=== PATIENT | female | born 1960 | race Caucasian/White ===

== ENCOUNTER 2018-01-29 22:49 | Inpatient (IN) | payer BC ==
[~2018-01-29] VITALS: Ht 165.1 cm; Wt 88.0 kg
[~2018-01-29 22:49] MED LIST: ASPI81TA81 PO; CARV12.52 PO; EPIP0.3I IM; FISH1000 PO; GLIP5TAB8 PO; GLUM1000 PO; LISI-515 PO; MULT-120 PO; SIMV20TA PO; [UNRECOGNIZED DRUG - SUPPLY]; glucometer
[2018-01-30] VITALS (7 sets, daily range): BP systolic 133–165; BP diastolic 71–87; PULSE 99–109; RESP 16–20; TEMP 97.4–98.1; O2SAT 95–99
[2018-01-30] MEDS ORDERED: TURM500C7 (00:23)
[2018-01-30] MEDS ORDERED: MULT-65 PO (00:23)
[2018-01-30] MEDS ORDERED: CINN500C14 (00:23)
--- NOTE | 2018-01-30 01:15 | RADRPT ---
EXAM DATE/TIME: 01/30/2018 01:01 [facility] COMPARISON: No previous studies available for comparison. INDICATIONS : Fell down a step this evening and felt pop. MEDICAL HISTORY : None. SURGICAL HISTORY : None. ENCOUNTER: Initial ACUITY: 1 day PAIN SCORE: 7/10 LOCATION: Left Ankle FINDINGS: Three view exam was performed of the left ankle. Bimalleolar fracture dislocation of the ankle with c omplete disruption of the ankle mortise. CONCLUSION: Bimalleolar fracture dislocation of the ankle. Kyle Hernandez MD on January 30, 2018 at 1:12 Board Certified Radiologist. This report was verified electronically.
[2018-01-30] MEDS ORDERED: SODIUM CHLORID 0.9% 500 ML INJ 500 ML IV ONE (01:30)
[2018-01-30] MEDS ORDERED: PROPOFOL 500 MG/50 ML BTL IV ONE (01:30)
[2018-01-30] MEDS ORDERED: SODIUM CHLORIDE 0.9% FLUSH 10 ML FLUSH IVF PRN (01:30)
--- NOTE | 2018-01-30 01:34 | RADRPT ---
EXAM DATE/TIME: 01/30/2018 01:14 [facility] COMPARISON: No previous studies available for comparison. INDICATIONS : Trauma; fall. RADIATION DOSE: 21.24 CTDIvol (mGy) MEDICAL HISTORY : Hypertension. Diabetes mellitus type 2. SURGICAL HISTORY : Hysterectomy. ENCOUNTER: Initial ACUITY: 1 day PAIN SCALE: 6/10 LOCATION: neck TECHNIQUE: Volumetric scanning of the cervical spine was performed. Multiplanar reconstructions in the sagittal, coronal and oblique axial planes were performed. Using automated exposure control and adjustment o f the mA and/or kV according to patient size, radiation dose was kept as low as reasonably achievable to obtain optimal diagnostic quality images. DICOM format image data is available electronically f or review and comparison. FINDINGS: Sagittal and coronal reconstructions show straightening of the lordotic curvature. Degenerative disc disease most prominent at C4-5 and C5-6 with some loss of disc height and uncovertebral ridging. Vert ebral body heights are maintained without fracture or listhesis. Despite the degenerative spurring at C4-5 and C5-6, the spinal canal appears to be adequate throughout without significant spinal stenosi s. C2-C3: The bony spinal canal is normal in size. No evidence of disc bulge or herniation. The neural forami na are bilaterally patent. C3-C4: The bony spinal canal is normal in size. No evidence of disc bulge or herniation. The neural forami na are bilaterally patent. C4-C5: Minimal or vertebral ridging encroaches on the interictal state. Spinal canal and neural foramina are patent. C5-C6: Minimal uncovertebral ridging most prominent right paramidline encroaching on the intervertebral spac e. Spinal canal and neural foramina are patent C6-C7: The bony spinal canal is normal in size. No evidence of disc bulge or herniation. The neural forami na are bilaterally patent. C7-T1: The bony spinal canal is normal in size. No evidence of disc bulge or herniation. The neural forami na are bilaterally patent. CONCLUSION: 1. Straightening of the normal lordotic curvature with mild degenerative disc disease at C4-5 and C5- 6. 2. However, no fracture. Spinal canal and neural foramina are adequate throughout Kyle Hernandez MD on January 30, 2018 at 1:30 Board Certified Radiologist. This report was verified electronically.
--- NOTE | 2018-01-30 01:37 | RADRPT ---
EXAM DATE/TIME: 01/30/2018 01:14 [facility] COMPARISON: CT CERVICAL SPINE W/O CONTRAST, January 30, 2018, 1:14. INDICATIONS : Trauma; fall. RADIATION DOSE: 35.02 CTDIvol (mGy) MEDICAL HISTORY : Hypertension. Diabetes mellitus type 2. SURGICAL HISTORY : Hysterectomy. ENCOUNTER: Initial ACUITY: 1 day PAIN SCALE: 6/10 LOCATION: cranial TECHNIQUE: Multiple contiguous axial images were obtained of the head. Using automated exposure control and adj ustment of the mA and/or kV according to patient size, radiation dose was kept as low as reasonably a chievable to obtain optimal diagnostic quality images. DICOM format image data is available electro nically for review and comparison. FINDINGS: CEREBRUM: The ventricles are normal for age. No evidence of midline shift, mass lesion, hemorrhage or acute in farction. No extra-axial fluid collections are seen. POSTERIOR FOSSA: The cerebellum and brainstem are intact. The 4th ventricle is midline. The cerebellopontine angle i s unremarkable. EXTRACRANIAL: The visualized portion of the orbits is intact. SKULL: The calvaria is intact. No evidence of skull fracture. There appears to be a small cephalhematoma ov er the left posterior parietal region. CONCLUSION: 1. Small cephalhematoma over the left posterior parietal region. 2. Otherwise negative. No acute fracture or intracranial process. Kyle Hernandez MD on January 30, 2018 at 1:33 Board Certified Radiologist. This report was verified electronically.
--- NOTE | 2018-01-30 01:55 | PD ---
HPI Chief Complaint: Fall Time Seen by Provider: 01:22 Travel History International Travel<30 days: No Contact w/Intl Traveler<30days: No Traveled to known affect area: No History of Present Illness HPI Patient is a 57-year-old female presents emergency department for evaluation of left ankle pain after slip and fall. Patient states that she was going to a closet where it was dark the floor was wet and she slipped. States she immediately noted pain on her ankle but the pain is fairly well controlled unless she touches it or moves it. She is actually fairly comfortable. Denies any head injury neck injury back injury chest injury abdominal injury. Incident happened just prior to arrival, pain is mild, left ankle, context as above per [facility] Past Medical History Cardiovascular Problems: No Diabetes: Yes Patient Takes Glucophage: Yes Hepatitis: No Hiatal Hernia: No Hypertension: Yes Medical other: Yes (HYPERCHOLESTEROLEMIA) Respiratory: No Immunizations Current: Yes Thyroid Disease: No Tetanus Vaccination: Unknown Influenza Vaccination: No Past Surgical History Oral Surgery: Yes (TONSILLECTOMY) Pacemaker: No Other Surgery: Yes (BREAST REDUCTION) Social History Alcohol Use: Yes (OCC) Tobacco Use: No Substance Use: No Allergies-Medications (Allergen,Severity, Reaction): Coded Allergies: No Known Allergies (Verified Adverse Reaction, Unknown, 01/30/18) Reported Meds & Prescriptions Reported Meds & Active Scripts Active Glumetza (Metformin HCl) 1,000 Mg Diego 1,000 Mg PO BID With evening meal Glipizide 5 Mg Tab 5 Mg PO BIDAC Take 30 minutes before a meal Lisinopril 20 Mg Tab 20 Mg PO DAILY Simvastatin 20 Mg Tab 20 Mg PO HS Carvedilol 12.5 Mg Tab 12.5 Mg PO BID Reported Sm Cinnamon (Cinnamon) 500 Mg Cap Turmeric (Turmeric Root Extract) 500 Mg Capsule Multi-Vitamin Daily (Multiple Vitamin) 1 Tab Tab 1 Tab PO DAILY Fish Oil ([place]-3 Fatty Acids) 1,000 Mg Cap 1,000 Mg PO BID 1 tab in am, 2 tabs in pm Aspir-81 (Aspirin) 81 Mg Tabdr 81 Mg PO DAILY Epipen 2-Cayetano Inj (Epinephrine) 0.3 Mg/0.3 Ml Pfpen 0.3 Mg IM ONCE PRN Review of Systems Except as stated in HPI: all other systems reviewed are Neg Physical Exam Narrative GENERAL: Well-developed, morbidly obese female in no obvious distress., Quite pleasant peer SKIN: Focused skin assessment warm/dry. HEAD: Atraumatic. Normocephalic. EYES: Pupils equal and round. No scleral icterus. No injection or drainage. ENT: No nasal bleeding or discharge. Mucous membranes pink and moist. NECK: Trachea midline. No JVD. CARDIOVASCULAR: Regular rate and rhythm. No murmur appreciated. RESPIRATORY: No accessory muscle use. Clear to auscultation. Breath sounds equal bilaterally. GASTROINTESTINAL: Abdomen soft, non-tender, nondistended. Hepatic and splenic margins not palpable. MUSCULOSKELETAL: There is obvious deformity of the left ankle, probably fracture dislocation, pulses motor and sensory are intact distally in all 4 extremities. She has a bounding dorsalis pedis pulse, the posterior tibial cannot be palpated due to a distortion of her anatomy. No tenderness at the proximal fibula. No midline CT or L-spine tenderness. No clubbing. No cyanosis. No edema. NEUROLOGICAL: Awake and alert. No obvious cranial nerve deficits. Motor grossly within normal limits. Normal speech. PSYCHIATRIC: Appropriate mood and affect; insight and judgment normal. Data Data Last Documented VS Vital Signs Date Time Temp Pulse Resp B/P (MAP) Pulse Ox O2 Delivery O2 Flow Rate FiO2 01/30/18 01:40 99 2.00 01/30/18 01:40 Nasal Cannula 01/30/18 00:03 97.6 102 18 162/76 (104) Orders Orders Ct Brain W/O Iv Contrast(Rout) (01/30/18 ) Ct Cerv Spine W/O Contrast (01/30/18 ) Ankle, Complete ([id number]) (01/30/18 ) Complete Blood Count With Diff (01/30/18 01:27) Comprehensive Metabolic Panel (01/30/18:27) Magnesium (Mg) (01/30/18:27) Prothrombin Time / Inr (Pt) (01/30/18:27) Act Partial Throm Time (Ptt) (01/30/18:27) Chest, Single Ap (01/30/18:27) Ecg Monitoring (01/30/18:27) Iv Access Insert/Monitor (01/30/18:27) Oximetry (01/30/18:27) Oxygen Administration (01/30/18:27) Sodium Chloride 0.9% Flush (Ns Flush) (01/30/18 01:30) Sodium Chlorid 0.9% 500 Ml Inj (Ns 500 M (01/30/18 01:30) Propofol 500 Mg/50 Ml Inj (Diprivan 500 (01/30/18 01:30) Splinting (01/30/18 ) Consult Orthopedic (01/30/18 ) Ankle, Complete ([id number]) (01/30/18 ) (Hub Use Only)Inp Phy Cons/Ref (01/30/18 ) Admit Order (Ed Use Only) (01/30/18 ) Labs Laboratory Tests Test 01/30/18 01:55 White Blood Count 13.9 TH/MM3 Red Blood Count 4.64 MIL/MM3 Hemoglobin 13.6 GM/DL Hematocrit 40.8 % Mean Corpuscular Volume 87.9 FL Mean Corpuscular Hemoglobin 29.3 PG Mean Corpuscular Hemoglobin Concent 33.3 % Red Cell Distribution Width 13.5 % Platelet Count 220 TH/MM3 Mean Platelet Volume 8.4 FL Neutrophils (%) (Auto) 86.7 % Lymphocytes (%) (Auto) 6.9 % Monocytes (%) (Auto) 3.1 % Eosinophils (%) (Auto) 0.9 % Basophils (%) (Auto) 2.4 % Neutrophils # (Auto) 12.0 TH/MM3 Lymphocytes # (Auto) 1.0 TH/MM3 Monocytes # (Auto) 0.4 TH/MM3 Eosinophils # (Auto) 0.1 TH/MM3 Basophils # (Auto) 0.3 TH/MM3 CBC Comment AUTO DIFF Differential Total Cells Counted 100 Neutrophils % (Manual) 86 % Band Neutrophils % 2 % Lymphocytes % 5 % Monocytes % 6 % Eosinophils % 1 % Neutrophils # (Manual) 12.2 TH/MM3 Differential Comment FINAL DIFF MANUAL Platelet Estimate NORMAL Platelet Morphology Comment NORMAL Red Cell Morphology Comment NORMAL Prothrombin Time 10.8 SEC Prothromb Time International Ratio 1.1 RATIO Activated Partial Thromboplast Time 24.1 SEC Blood Urea Nitrogen 22 MG/DL Creatinine 1.20 MG/DL Random Glucose 420 MG/DL Total Protein 7.0 GM/DL Albumin 3.1 GM/DL Calcium Level 9.1 MG/DL Magnesium Level 1.5 MG/DL Alkaline Phosphatase 127 U/L Aspartate Amino Transf (AST/SGOT) 56 U/L Alanine Aminotransferase (ALT/SGPT) 79 U/L Total Bilirubin 0.6 MG/DL Sodium Level 135 MEQ/L Potassium Level 3.8 MEQ/L Chloride Level 101 MEQ/L Carbon Dioxide Level 22.4 MEQ/L Anion Gap 12 MEQ/L Estimat Glomerular Filtration Rate 46 ML/MIN MDM Medical Decision Making Medical Screen Exam Complete: Yes Emergency Medical Condition: Yes Differential Diagnosis Ankle fracture, ankle dislocation, head injury seems unlikely. Narrative Course Patient was room to the emergency department, after confirming fracture dislocation and trimalleolar equivalent the patient was sedated and reduced. During splinting however the patient's ankle slipped back out of place, she remained to have good pulses motor and sensory after the splint was applied. She certainly has quite an unstable ankle fracture. The patient will be admitted to the residents for operative intervention and a routine consult has been placed orthopedics. Patient pain is very well controlled and she did not require any pain medicine in the emergency department but sensation was briskly intact to light touch. Procedures Procedure Narrative ORTHOPEDIC REDUCTION: After informed consents of all risks benefits complications and alternatives of both the sedation and reduction were discussed with the patient she signed a formal consent. Dr. Armando Elizalde is at the bedside sedating the patient with propofol, using standard traction countertraction patient was successfully reduced, however during splinting the patient's ankle slipped back out of place. This is a very unstable ankle. Having had a partial reduction in the pulses are bounding she was splinted in position. Having suffered no untoward event the patient was left at the bedside with call lomeli in place. Diagnosis Primary Impression: Fracture dislocation of ankle Additional Impression: Trimalleolar fracture of ankle, closed Admitting Information Admitting Physician Requests: Admit Condition: Stable Kyle Knapp MD Jan 30, 2018 01:55
--- NOTE | 2018-01-30 01:56 | PD ---
Data Data Last Documented VS Vital Signs Date Time Temp Pulse Resp B/P (MAP) Pulse Ox O2 Delivery O2 Flow Rate FiO2 01/30/18 00:03 97.6 102 18 162/76 (104) [address] Brain W/O Iv Contrast(Rout) (01/30/18 ) Ct Cerv Spine W/O Contrast (01/30/18 ) Ankle, Complete ([id number]) (01/30/18 ) Electrocardiogram (01/30/18 01:27) Complete Blood Count With Diff (01/30/18 01:27) Comprehensive Metabolic Panel (01/30/18 01:27) Magnesium (Mg) (01/30/18 01:27) Prothrombin Time / Inr (Pt) (01/30/18 01:27) Act Partial Throm Time (Ptt) (01/30/18 01:27) Chest, Single Ap (01/30/18 01:27) Ecg Monitoring (01/30/18 01:27) Iv Access Insert/Monitor (01/30/18 01:27) Oximetry (01/30/18 01:27) Oxygen Administration (01/30/18 01:27) Sodium Chloride 0.9% Flush (Ns Flush) (01/30/18 01:30) Sodium Chlorid 0.9% 500 Ml Inj (Ns 500 M (01/30/18 01:30) Propofol 500 Mg/50 Ml Inj (Diprivan 500 (01/30/18 01:30) Splinting (01/30/18 ) Consult Orthopedic (01/30/18 ) Ankle, Complete ([id number]) (01/30/18 ) MDM Supervised Visit with REBECA: No Narrative Course I was asked by Dr. Knapp to perform procedural sedation for closed reduction of left ankle fracture/dislocation. See procedure note. Procedures Procedure Narrative Procedural sedation for closed reduction of left ankle fracture/dislocation: After the risks and benefits were discussed the following procedure was performed: MODERATE SEDATION: The patient was placed on a product marketing engineer and pulse oximetry. An ambu bag and suction was immediately available at bedside. The patient was monitored by the nurse. Oxygen saturation , heart rate and blood pressure were monitored. Procedural sedation was acheived using 140 mg of propofol. The patient was observed until awake and alert. Procedural Sedation time in attendance was 20 minutes. Armando Elizalde MD Jan 30, 2018 01:56
[2018-01-30 02:15] LABS: BASOPHIL # 0.3 TH/MM3 (0-0.2); BASOPHIL % 2.4 % (0.0-2.0); EOSINOPHIL # 0.1 TH/MM3 (0-0.4); EOSINOPHIL % 0.9 % (0.0-4.0); HEMATOCRIT 40.8 % (35.0-46.0); HEMOGLOBIN 13.6 GM/DL (11.6-15.3); LYMPH % 6.9 % (9.0-44.0); MEAN CELL VOLUME 87.9 FL (80.0-100.0); MEAN CORPUSCULAR HEMOGLOBIN 29.3 PG (27.0-34.0); MEAN CORPUSCULAR HGB CONC 33.3 % (32.0-36.0); MEAN PLATELET VOLUME 8.4 FL (7.0-11.0); MONO % 3.1 % (0.0-8.0); MONOCYTE # 0.4 TH/MM3 (0-0.9); NEUT % 86.7 % (16.0-70.0); PLATELET COUNT 220 TH/MM3 (150-450); RED BLOOD COUNT 4.64 MIL/MM3 (4.00-5.30); RED CELL DISTRIBUTION WIDTH 13.5 % (11.6-17.2); WHITE BLOOD COUNT 13.9 TH/MM3 (4.0-11.0)
[2018-01-30 02:24] LABS: INTERNATIONAL NORMALIZED RATIO 1.1 RATIO; PROTHROMBIN TIME - PATIENT 10.8 SEC (9.8-11.6)
--- NOTE | 2018-01-30 02:32 | RADRPT ---
EXAM DATE/TIME: 01/30/2018 01:58 [facility] COMPARISON: ANKLE LEFT COMPLETE ([id number]), January 30, 2018, 1:01. INDICATIONS : Post reduction of left ankle fracture/dislocation. MEDICAL HISTORY : Hypertension. Diabetes mellitus type II. SURGICAL HISTORY : Hysterectomy. ENCOUNTER: Subsequent ACUITY: 1 day PAIN SCORE: 5/10 LOCATION: Left ankle FINDINGS: Three view exam was performed of the left ankle. Partial closed reduction of the completely dislocate d ankle joint. Bimalleolar fracture as before. CONCLUSION: Partial reduction of the completely dislocated ankle joint. Bimalleolar fracture. Kyle Hernandez MD on January 30, 2018 at 2:30 Board Certified Radiologist. This report was verified electronically.
--- NOTE | 2018-01-30 02:32 | RADRPT ---
EXAM DATE/TIME: 01/30/2018 02:04 [facility] COMPARISON: No previous studies available for comparison. INDICATIONS : Evaluate for any pulmonary disease as patient is being pre-oped for open reduction internal fixation of a left ankle fracture. MEDICAL HISTORY : Diabetes mellitus type II. Hypertension SURGICAL HISTORY : Hysterectomy. ENCOUNTER: Initial ACUITY: 1 day PAIN SCORE: 0/10 LOCATION: Bilateral chest FINDINGS: A single view of the chest demonstrates the lungs to be symmetrically aerated without evidence of mas s, infiltrate or effusion. The cardiomediastinal contours are unremarkable. Osseous structures are intact. CONCLUSION: No acute cardiopulmonary process. Kyle Hernandez MD on January 30, 2018 at 2:31 Board Certified Radiologist. This report was verified electronically.
--- NOTE | 2018-01-30 02:45 | HHI.HP ---
[facility] Service Family Medicine Primary Care Physician No Primary Care Physician Admission Diagnosis Closed fracture/dislocation left ankle. Diagnoses: International Travel<30 Days: No Contact w/Intl Traveler<30days: No Known Affected Area: No History of Present Illness Patient is a 57-year-old female with past history of hypertension, hyperlipidemia, diabetes type 2, who comes in today complaining of left foot dislocation. The patient reports that earlier in the night she was reaching up to grab something and stepped back not realizing she had a concrete step behind her and fell approximately 18 inches landing on her left foot, bracing herself with both arms. She knows she hit her head and reports some pain in the back left. Denies loss of consciousness, lightheadedness, dizziness, changes in vision, headache, nausea, vomiting. She denies any pain in her bilateral arms, reports she has good movement in both of them and has had no issues with them. She called the ambulance, however was told that he would take approximately 1 hour to get to her so she was driven by a friend. Following the fall she had difficulty supporting herself on her left foot. Reports minimal pain in her left foot at time of examination, however reports a pain of up to 6/10 at worst during the night. No pain superior to her left ankle. Reports she can feel her toes and her left foot. No other complaints today. (Willis Garland MD R1) Review of Systems Constitutional: DENIES: Fatigue, Fever, Weight gain, Weight loss, Chills Endocrine: DENIES: Polydipsia, Polyuria Eyes: DENIES: Blurred vision, Diplopia, Eye pain, Vision loss, Double Vision Ears, nose, mouth, throat: DENIES: Tinnitus, Hearing loss, Running Nose, Epistaxis Respiratory: DENIES: Cough, Wheezing, Hemoptysis, Sputum production, Shortness of breath Cardiovascular: DENIES: Chest pain, Palpitations Gastrointestinal: DENIES: Abdominal pain, Black stools, Bloody stools, Constipation, Diarrhea, Nausea, Vomiting Genitourinary: DENIES: Urinary frequency, Dysuria Musculoskeletal: COMPLAINS OF: Joint pain, Joint Swelling, DENIES: Muscle aches Integumentary: DENIES: Abnormal pigmentation, Rash Hematologic/lymphatic: COMPLAINS OF: Bruising (on elbow), DENIES: Lymphadenopathy Immunologic/allergic: DENIES: Eczema, Urticaria Neurologic: DENIES: Abnormal gait, Headache, Paresthesias Psychiatric: DENIES: Anxiety, Confusion (Willis Garland MD R1) Past Family Social History Past Medical History PFSH obtained via EMR and confirmed with patient DM II HTN HLD Past Surgical History Breast reduction (2011) Broken arm 52 years ago (Willis Garland MD R1) Allergies: Coded Allergies: No Known Allergies (Verified Adverse Reaction, Unknown, 01/30/18) Family History Mom: from Alzheimer Disease Dad: DM, from COPD Social History Marital Status: Living Situation: [place], [place] with Education: 2 years of college Work history: manager revenue at [employer] Tobacco: None Alcohol: Seldom Illicit drug use: None (Willis Garland MD R1) Physical Exam Vital Signs Vital Signs Date Time Temp Pulse Resp B/P (MAP) Pulse Ox O2 Delivery O2 Flow Rate FiO2 01/30/18 00:03 97.6 102 18 162/76 (104) 98 Physical Exam GENERAL: This is a well-nourished, well-developed patient, in no apparent distress. SKIN: No rashes. Mild abrasions and ecchymoses to posterior left arm. Cool and dry. HEAD: Normocephalic. Left posterior occiput scalp tenderness. Mild hematoma palpated. EYES: Pupils equal round and reactive. Extraocular motions intact. No scleral icterus. No injection or drainage. ENT: Nose without bleeding, purulent drainage or septal hematoma. Throat without erythema, tonsillar hypertrophy or exudate. Uvula midline. Airway patent. NECK: Trachea midline. No JVD or lymphadenopathy. Supple, nontender, no meningeal signs. CARDIOVASCULAR: Regular rate and rhythm without murmurs, gallops, or rubs. RESPIRATORY: Clear to auscultation. Breath sounds equal bilaterally. No wheezes , rales, or rhonchi. GASTROINTESTINAL: Abdomen soft, non-tender, nondistended. No hepato-splenomegaly , or palpable masses. No guarding. MUSCULOSKELETAL: Extremities without clubbing, cyanosis, or edema. No calf tenderness. Left foot reduced and bandaged at time of examination. Toes exposed, good movement in bilateral toes. Toes pink. Bilateral arms with good range of motion, 5 out of 5 strength NEUROLOGICAL: Awake and alert. Cranial nerves II through XII grossly intact. Motor and sensory grossly within normal limits. Bilateral toes with equal intact sensation. Normal speech. Laboratory Laboratory Tests Test 01/30/18 01:55 White Blood Count 13.9 Red Blood Count 4.64 Hemoglobin 13.6 Hematocrit 40.8 Mean Corpuscular Volume 87.9 Mean Corpuscular Hemoglobin 29.3 Mean Corpuscular Hemoglobin Concent 33.3 Red Cell Distribution Width 13.5 Platelet Count 220 Mean Platelet Volume 8.4 Neutrophils (%) (Auto) 86.7 Lymphocytes (%) (Auto) 6.9 Monocytes (%) (Auto) 3.1 Eosinophils (%) (Auto) 0.9 Basophils (%) (Auto) 2.4 Neutrophils # (Auto) 12.0 Lymphocytes # (Auto) 1.0 Monocytes # (Auto) 0.4 Eosinophils # (Auto) 0.1 Basophils # (Auto) 0.3 CBC Comment AUTO DIFF Prothrombin Time 10.8 Prothromb Time International Ratio 1.1 Activated Partial Thromboplast Time 24.1 (Willis Garland MD R1) Result Diagram: 01/30/18 0155 Caprini VTE Risk Assessment Caprini VTE Risk Assessment: Mod/High Risk (score >= 2) VTE Pharm Contraindication: Possible surgery [facility] Contraindication: LE injury/wound (Willis Garland MD R1) Assessment and Plan Assessment and Plan Patient is a 57-year-old female with past history of hypertension, hyperlipidemia, diabetes type 2, who came in with left foot dislocation. Currently status post reduction with sensation in toes intact, ability to move the toes. (Willis Garland MD R1) Attending Attestation THIS CASE WAS DISCUSSED WITH THE RESIDENT PHYSICIANS. I HAVE REVIEWED THE RECORD AND AGREE WITH THE ABOVE NOTE AND PLAN OF CARE WAS DISCUSSED. I HAVE AUTHORIZED THE ORDER FOR ADMISSION TO AN IN-PATIENT STATUS. (Glenna Perdomo MD) Problem List: (1) Foot dislocation ICD Codes: S93.306A - Unspecified dislocation of unspecified foot, initial encounter Status: Acute Plan: Left foot dislocation. Currently status post reduction with sensation in toes intact, ability to move toes, toes pink. -Ankle x-ray with bimalleolar fracture -orthopedic surgery consulted, appreciate recommendations -Pain management -Continue to monitor neurovascular status of the affected foot (2) Diabetes mellitus type 2, controlled ICD Codes: E11.9 - Type 2 diabetes mellitus without complications Status: Acute Plan: Patient with history of type 2 diabetes. -Home medications held -low-dose sliding scale insulin (3) Hyperlipidemia ICD Codes: E78.5 - Hyperlipidemia, unspecified Status: Chronic Plan: History of hyperlipidemia -continue home medications, simvastatin 20, fish oil (4) Essential hypertension ICD Codes: I10 - Essential (primary) hypertension Status: Acute Plan: History of essential hypertension -Continue home medication -Carvedilol 12.5 mg twice daily -Lisinopril 20 mg daily (5) FEN Plan: Fluids: N.p.o., maintenance fluids Electrolytes: -Monitor and replete as needed Nutrition: N.p.o. for possible surgical management (Willis Garland MD R1) Physician Certification 2 Midnight Certification Type: Admission for Inpatient Services Order for Inpatient Services The services are ordered in accordance with Medicare regulations or non- Medicare payer requirements, as applicable. In the case of services not specified as inpatient-only, they are appropriately provided as inpatient services in accordance with the 2-midnight benchmark. Estimated LOS (days): 2 2 days is the estimated time the patient will need to remain in the hospital, assuming treatment plan goals are met and no additional complications. Post-Hospital Plan: Home (Willis Garland MD R1) 2 Midnight Certification Type: Admission for Inpatient Services Post-Hospital Plan: Home (Glenna Perdomo MD) Problem Qualifiers (1) Foot dislocation: Qualified Codes: S93.305A - Unspecified dislocation of left foot, initial encounter Willis Garland MD R1 Jan 30, 2018 02:44 Glenna Perdomo MD Jan 31, 2018 13:23
[2018-01-30 03:03] LABS: BANDS 2 % (0-6); LYMPHOCYTES 5 % (9-44); MONOCYTES 6 % (0-8); NEUTROPHIL # MANUAL DIFF 12.2 TH/MM3 (1.8-7.7); POLYS (SEG NEUTROPHILS) 86 % (16-70)
[2018-01-30 03:19] LABS: ALBUMIN 3.1 GM/DL (3.4-5.0); ALKALINE PHOSPHATASE 127 U/L (45-117); ALT (GPT) 79 U/L (10-53); AST (GOT) 56 U/L (15-37); BICARBONATE 22.4 MEQ/L (21.0-32.0); BLOOD UREA NITROGEN 22 MG/DL (7-18); CALCIUM 9.1 MG/DL (8.5-10.1); CHLORIDE 101 MEQ/L (98-107); GLOMERULAR FILTRATION RATE 46 ML/MIN (>89); GLUCOSE,RANDOM 420 MG/DL (74-106); MAGNESIUM 1.5 MG/DL (1.5-2.5); SODIUM (NA) 135 MEQ/L (136-145); TOTAL BILIRUBIN ADULT 0.6 MG/DL (0.2-1.0)
[2018-01-30] MEDS ORDERED: MAGNESIUM HYDROXIDE SUSP 30 ML CUP PO PRN ×2 (03:45→13:30)
[2018-01-30] MEDS ORDERED: DEXTROSE 50% IN WATER 50 ML VIAL(D50) IV PUSH PRN (03:45)
[2018-01-30] MEDS ORDERED: GLUCAGON 1 MG/ML VIAL OTHER PRN (03:45)
[2018-01-30] MEDS ORDERED: BISACODYL 10 MG SUPP RECTAL PRN (03:45)
[2018-01-30] MEDS ORDERED: SODIUM CHLORIDE 0.9% FLUSH 10 ML FLUSH IV FLUSH PRN (03:45)
[2018-01-30] MEDS ORDERED: ONDANSETRON HCL 4 MG/2 ML VIAL IVP PRN ×2 (03:45→13:30)
[2018-01-30] MEDS ORDERED: SENNOSIDES 8.6 MG TAB PO PRN (03:45)
[2018-01-30] MEDS ORDERED: LACTULOSE SYRUP 20 GM/30 ML CUP PO PRN (03:45)
[2018-01-30] MEDS ORDERED: NALOXONE HCL 0.4 MG/ML AMP IV PUSH PRN ×3 (03:45→13:30)
[2018-01-30] MEDS ORDERED: ACETAMINOPHEN/HYDROcodone 325 MG/5 MG TAB PO PRN (04:15)
[2018-01-30] MEDS ORDERED: MORPHINE SULFATE 4 MG/ML INJ IV PUSH PRN (04:15)
[2018-01-30] MEDS ORDERED: IBUPROFEN 400 MG TAB PO PRN (04:15)
[2018-01-30] MEDS ORDERED: ACETAMINOPHEN/HYDROcodone 325 MG/7.5 MG TAB PO PRN ×2 (04:15→13:30)
[2018-01-30] MEDS: SODIUM CHLOR 0.9% 1000 ML INJ 1,000 ML IV SCH ×2 (04:50→19:05)
[2018-01-30] MEDS ORDERED: NON-FORMULARY DRUG (Omega-3 Fatty Acids (Fish Oil) 1,000 MG) PO SCH (09:00)
[2018-01-30] MEDS: INSULIN ASPART SUPPLEMENTAL SCALE SQ SCH ×4 (09:09→19:51)
[2018-01-30] MEDS: LISINOPRIL 20 MG TAB PO SCH (09:41)
[2018-01-30] MEDS: SODIUM CHLORIDE 0.9% FLUSH 10 ML FLUSH IV FLUSH SCH ×2 (09:41→19:50)
[2018-01-30] MEDS: CARVEDILOL 12.5 MG TAB PO SCH ×2 (09:41→19:50)
[2018-01-30] MEDS: DOCUSATE SODIUM 50 MG/SENNA 8.6 MG TAB PO SCH ×3 (09:41→19:50)
[2018-01-30] MEDS ORDERED: ceFAZolin 2 GM PREMIX 50 ML ONE (11:16)
[2018-01-30] MEDS ORDERED: GENTAMICIN SULFATE 80 MG/2 ML VIAL ONE ×2 (11:16)
[2018-01-30] MEDS ORDERED: LIDOCAINE HCL 1% PF 5 ML SYRINGE OTHER ONE (12:00)
[2018-01-30] MEDS ORDERED: LACTATED RINGER'S 1000 ML INJ 1,000 ML IV ONE (12:00)
[2018-01-30] MEDS ORDERED: ePHEDrine/NS 25 MG/5 ML SYRINGE IV ONE (12:00)
[2018-01-30] MEDS ORDERED: ONDANSETRON HCL 4 MG/2 ML VIAL IV ONE (12:00)
[2018-01-30] MEDS ORDERED: PROPOFOL 200 MG/20 ML AMP IV ONE (12:00)
[2018-01-30] MEDS ORDERED: PHENYLEPH/NS 1000 MCG/10 ML SYR IV ONE (12:00)
[2018-01-30] MEDS: LACTATED RINGER'S 1000 ML INJ 1,000 ML IV SCH ×2 (13:17→23:17)
--- NOTE | 2018-01-30 13:23 | PD.CONS ---
HPI Service Orthopedic Surgeons Consult Requested By Dr. Colon Reason for Consult Fracture dislocation of the left ankle Primary Care Physician No Primary Care Physician Admission Diagnosis Closed fracture/dislocation left ankle. Diagnoses: Chief Complaint: Left ankle fracture dislocation History of Present Illness This patient is a 57-year-old female. She went to get a soda when she stepped backwards not realizing there was an 18 inch step off. She landed on her left ankle and had immediate pain. She struck her head but had no loss of consciousness. She was unable to ambulate. She brought the emergency room at [facility] for evaluation. X-ray showed evidence of a fracture dislocation of the left ankle. The patient has been admitted to the medical service and I have been asked to see the patient in consultation regarding the same Past Family Social History Allergies: Coded Allergies: No Known Allergies (Verified Adverse Reaction, Unknown, 01/30/18) Active Ordered Medications Current Medications Medications (Trade) Dose Ordered Sig/Annelise Route Start Time Stop Time Status Last Admin (NS Flush) 2 ml UNSCH PRN IV FLUSH 01/30/18 03:45 (NS Flush) 2 ml BID IV FLUSH 01/30/18 09:00 01/30/18 09:41 (Zofran Inj) 4 mg Q6H PRN IVP 01/30/18 03:45 (Narcan Inj) 0.4 mg UNSCH PRN IV PUSH 01/30/18 03:45 (Divine-Colace) 1 tab BID PO 01/30/18 09:00 (Milk Of Magnesia Liq) 30 ml Q12H PRN PO 01/30/18 03:45 (Senokot) 17.2 mg Q12H PRN PO 01/30/18 03:45 (Dulcolax Supp) 10 mg DAILY PRN RECTAL 01/30/18 03:45 (Lactulose Liq) 30 ml DAILY PRN PO 01/30/18 03:45 (Coreg) 12.5 mg BID PO 01/30/18 09:00 01/30/18 09:41 (Prinivil) 20 mg DAILY PO 01/30/18 09:00 01/30/18 09:41 (Pravachol) 40 mg HS PO 01/30/18 21:00 (D50w (Vial) Inj) 50 ml UNSCH PRN IV PUSH 01/30/18 03:45 (Glucagon Inj) 1 mg UNSCH PRN OTHER 01/30/18 03:45 (NovoLOG SUPPLEMENTAL SCALE) 1 ACHS SLIDING SCALE SQ 01/30/18 08:00 (Motrin) 400 mg Q6H PRN PO 01/30/18 04:15 ([place] 5-325 Mg) 1 tab Q4H PRN PO 01/30/18 04:15 ([place] 7.5-325 Mg) 1 tab Q4H PRN PO 01/30/18 04:15 (Morphine Inj) 4 mg Q3H PRN IV PUSH 01/30/18 04:15 01/30/18 06:50 (Narcan Inj) 0.4 mg UNSCH PRN IV PUSH 01/30/18 04:15 Sodium Chloride 1,000 ml @ 135 mls/hr Q7H25M IV 01/30/18 04:15 01/30/18 04:50 Reported Meds & Active Scripts Active Glumetza (Metformin HCl) 1,000 Mg Diego 1,000 Mg PO BID With evening meal Glipizide 5 Mg Tab 5 Mg PO BIDAC Take 30 minutes before a meal Lisinopril 20 Mg Tab 20 Mg PO DAILY Simvastatin 20 Mg Tab 20 Mg PO HS Carvedilol 12.5 Mg Tab 12.5 Mg PO BID Reported Sm Cinnamon (Cinnamon) 500 Mg Cap Turmeric (Turmeric Root Extract) 500 Mg Capsule Multi-Vitamin Daily (Multiple Vitamin) 1 Tab Tab 1 Tab PO DAILY Fish Oil (Dunn-3 Fatty Acids) 1,000 Mg Cap 1,000 Mg PO BID 1 tab in am, 2 tabs in pm Aspir-81 (Aspirin) 81 Mg Tabdr 81 Mg PO DAILY Epipen 2-Cayetano Inj (Epinephrine) 0.3 Mg/0.3 Ml Pfpen 0.3 Mg IM ONCE PRN Physical Exam Vital Signs Vital Signs Date Time Temp Pulse Resp B/P (MAP) Pulse Ox O2 Delivery O2 Flow Rate FiO2 01/30/18 08:30 98.1 109 16 133/74 (93) 95 01/30/18 04:29 98.1 105 20 133/71 (91) 96 01/30/18 01:40 99 2.00 01/30/18 01:40 99 01/30/18 01:40 99 Nasal Cannula 2.00 01/30/18 00:03 97.6 102 18 162/76 (104) 98 Physical Exam HEENT: Normocephalic atraumatic pupils equal round reactive. NECK: Supple. No abnormal masses. Full range of motion. CHEST: Clear to auscultation with no rales or rhonchi's or wheezes. HEART: Regular rate and rhythm. No murmurs. ABDOMEN: Soft, nontender, no masses. Normal active bowel sounds. GENITOURINARY: Deferred MUSCULOSKELETAL the left leg is in a splint. A mild deformity. Mild swelling. Capillary refill is satisfactory. Sensation is almost normal. Laboratory Laboratory Tests Test 01/30/18 01:55 White Blood Count 13.9 Red Blood Count 4.64 Hemoglobin 13.6 Hematocrit 40.8 Mean Corpuscular Volume 87.9 Mean Corpuscular Hemoglobin 29.3 Mean Corpuscular Hemoglobin Concent 33.3 Red Cell Distribution Width 13.5 Platelet Count 220 Mean Platelet Volume 8.4 Neutrophils (%) (Auto) 86.7 Lymphocytes (%) (Auto) 6.9 Monocytes (%) (Auto) 3.1 Eosinophils (%) (Auto) 0.9 Basophils (%) (Auto) 2.4 Neutrophils # (Auto) 12.0 Lymphocytes # (Auto) 1.0 Monocytes # (Auto) 0.4 Eosinophils # (Auto) 0.1 Basophils # (Auto) 0.3 CBC Comment AUTO DIFF Differential Total Cells Counted 100 Neutrophils % (Manual) 86 Band Neutrophils % 2 Lymphocytes % 5 Monocytes % 6 Eosinophils % 1 Neutrophils # (Manual) 12.2 Differential Comment FINAL DIFF MANUAL Platelet Estimate NORMAL Platelet Morphology Comment NORMAL Red Cell Morphology Comment NORMAL Prothrombin Time 10.8 Prothromb Time International Ratio 1.1 Activated Partial Thromboplast Time 24.1 Blood Urea Nitrogen 22 Creatinine 1.20 Random Glucose 420 Total Protein 7.0 Albumin 3.1 Calcium Level 9.1 Magnesium Level 1.5 Alkaline Phosphatase 127 Aspartate Amino Transf (AST/SGOT) 56 Alanine Aminotransferase (ALT/SGPT) 79 Total Bilirubin 0.6 Sodium Level 135 Potassium Level 3.8 Chloride Level 101 Carbon Dioxide Level 22.4 Anion Gap 12 Estimat Glomerular Filtration Rate 46 Result Diagram: 01/30/18 0155 01/30/18 0155 Imaging Review of x-rays and reviewed the radiologist today shows evidence of what appears to be a bimalleolar, possibly a trimalleolar fracture dislocation of the left ankle. This appears be very unstable. Post reduction x-ray shows a partial relocation Assessment & Plan Assessment and Plan Trimalleolar fracture dislocation, left ankle. Diabetes mellitus. PLAN: Surgery: Open treatment internal fixation left ankle fracture dislocation. Consent: There are risks with surgery including infection, bleeding, loss of motion, continued pain, need for further surgery, loss of fixation, neurologic or vascular injury. The patient understands that this is a comminuted fracture and the chance of complications are higher than normal. Surgery when arrangements can be made at the [facility] Rey Clemens MD Jan 30, 2018 13:22
--- NOTE | 2018-01-30 13:28 | PD.OP ---
cc: Rey Clemens. Operative Report Date of Surgery: Jan 30, 2018 Preoperative Diagnosis: Fracture dislocation left ankle, bimalleolar versus trimalleolar Postoperative Diagnosis: Trimalleolar fracture dislocation left ankle Unstable syndesmotic ligament Procedure: Open treatment internal fixation left ankle fracture with lateral locking plates and screws and medial screws, without fixation of the posterior malleolus Repair of syndesmotic ligament with placement of a syndesmotic screw Surgeon: Rey Clemens Director Family(s): SYED Andrade Operation and Findings: EBL: 50 cc INDICATION: This patient is a 57-year-old female who sustained the above fracture after stepping off of a unseen height. She has a fracture dislocation. There was a partial reduction in the emergency room. She now presents for internal fixation NOTE: Silvana Andrade PA-C was present for the entire surgical procedure as my first cook. In my medical opinion her skill and care was necessary for the proper management of this patient. PROCEDURE: The patient brought to the operating room and anesthetized in the supine position. The left leg was visualized under fluoroscopy. Antibiotics were given within an one hour time window and a timeout was done. The lateral side was approached. After exsanguination the tourniquet was inflated to 250 mmHg. A longitudinal incision was made. The fracture was exposed. Multiple clamps used to hold this in proper position. This was highly comminuted. The distal malleolar fragment was at least 3 pieces. Significant osteopenia was suspect. A proper length ITS locking plate was positioned and held. Multiple screws were placed without a lag screw. There was significant comminution distally. Multiple #2 fiber wires were used through bone to help hold the fracture fragments into a reduced position using a cerclage type technique. 2 distal locking screws were placed. A syndesmotic screw was necessary because of disruption of the syndesmotic ligaments. Overall alignment was satisfactory case was noted. The wound was closed in layers with 2-0 Vicryl 3-0 Vicryl and 3-0 nylon mattress sutures. A medial incision was made. A clamp was used to hold the medial malleolus and anatomic alignment. A cannulated screw system was utilized. 2 pins were placed in good fashion and position. There measured carefully. They were drilled and the proper length screws were advanced across the wire across the fracture. The fracture was reduced anatomically. The wound was closed with 3- 0 nylon in a mattress fashion The wound was irrigated copiously and hemostasis was controlled. Intraoperative imaging showed anatomic reduction. Alignment was satisfactory. A posterior splint was fitted and applied. The patient was awakened and taken to recovery room satisfactory condition. The sponge count and needle count and sponge counts were all correct FINDINGS: This was a severely comminuted lateral malleolus fracture. Osteopenia is suspect. No complication was appreciated. Rey Clemens MD Jan 30, 2018 13:28
[2018-01-30] MEDS ORDERED: ECASA81 PO (13:29)
[2018-01-30] MEDS ORDERED: HYDR-3580 PO (13:29)
[2018-01-30] MEDS ORDERED: diphenhydrAMINE HCL 25 MG CAP PO PRN (13:30)
[2018-01-30] MEDS ORDERED: Post-op Orders (for Pharmacy) XX ONE (13:30)
[2018-01-30] MEDS ORDERED: ASPIRIN EC 81 MG TABEC PO ONE (13:30)
[2018-01-30] MEDS ORDERED: MORPHINE SULFATE 8 MG/ML INJ IV PUSH PRN (13:30)
[2018-01-30] MEDS ORDERED: MIDAZOLAM HCL 2 MG/2 ML VIAL ONE (13:40)
[2018-01-30] MEDS ORDERED: MORPHINE SULFATE 4 MG/ML INJ ONE (13:40)
[2018-01-30] MEDS ORDERED: DO NOT ADM ANY ANTICOAGULANT DRUGS PRN (14:15)
--- NOTE | 2018-01-30 14:19 | RADRPT ---
EXAM DATE/TIME: 01/30/2018 12:54 [facility] COMPARISON: ANKLE LEFT COMPLETE ([id number]), January 30, 2018, 1:58. INDICATIONS : Left ankle ORIF. MEDICAL HISTORY : None. SURGICAL HISTORY : None. ENCOUNTER: Initial ACUITY: 1 day PAIN SCORE: Non-responsive. LOCATION: Left Ankle. FINDINGS: Fluoroscopic evaluation demonstrates a surgical plate and screws traversing a comminuted distal fibul ar and tibial fracture with good anatomic alignment of the osseous structures. CONCLUSION: Status post ORIF of a comminuted distal fibular and tibial fracture with good anatomic alignment. Taylor Schultz MD on January 30, 2018 at 14:16 Board Certified Radiologist. This report was verified electronically.
[2018-01-30] MEDS: CALCIUM/VITAMIN D 250 MG/125 U TAB PO SCH (17:33)
[2018-01-30] MEDS: ACETAMINOPHEN/HYDROcodone 325 MG/7.5 MG TAB PO PRN (18:37)
[2018-01-30] MEDS: ASPIRIN EC 81 MG TABEC PO SCH (19:50)
[2018-01-30] MEDS ORDERED: PRAVASTATIN SOD 40 MG TAB PO SCH (21:00)
[2018-01-31] VITALS: BP 133/65; PULSE 102; RESP 20; TEMP 97.9; O2SAT 94
[2018-01-31] MEDS: SODIUM CHLOR 0.9% 1000 ML INJ 1,000 ML IV SCH ×2 (02:30→09:55)
[2018-01-31] MEDS: ACETAMINOPHEN/HYDROcodone 325 MG/7.5 MG TAB PO PRN ×4 (03:32→16:57)
[2018-01-31 04:00] VITALS: BP 153/84; PULSE 98; RESP 20; TEMP 99.1; O2SAT 96
--- NOTE | 2018-01-31 06:53 | PD.ORT.PN ---
Subjective Subjective Remarks No complaints. Appears comfortable. Lying in bed Objective Vitals Vital Signs Date Time Temp Pulse Resp B/P (MAP) Pulse Ox O2 Delivery O2 Flow Rate FiO2 01/31/18 04:00 99.1 98 20 153/84 (107) 96 01/31/18 00:00 97.9 102 20 133/65 (87) 94 01/30/18 20:00 97.7 99 16 165/86 (112) 99 01/30/18 19:57 98 Nasal Cannula 2.00 01/30/18 17:30 97.4 104 18 161/87 (111) 98 01/30/18 17:15 97 14 147/76 (99) 100 Nasal Cannula 2 01/30/18 16:15 100 14 131/60 (83) 100 Nasal Cannula 2 01/30/18 15:15 97 14 152/81 (104) 97 Nasal Cannula 2 01/30/18 14:15 98.1 98 14 163/82 (109) 97 Nasal Cannula 2 01/30/18 14:00 98 14 150/78 (102) 97 Nasal Cannula 2 01/30/18 13:45 98 14 154/77 (102) 97 Nasal Cannula 4 01/30/18 13:30 98.2 99 14 136/73 (94) 97 Nasal Cannula 4 01/30/18 08:30 98.1 109 16 133/74 (93) 95 I/O 01/30/18 01/30/18 01/30/18 01/31/18 01/31/18 01/31/18 07:00 15:00 23:00 07:00 15:00 23:00 Intake Total 0 ml 1200 ml 540 ml Output Total 50 ml 900 ml Balance 0 ml 1150 ml -360 ml Intake Oral 0 ml 540 ml Other 1200 ml Output Urine Total 900 ml Estimated Blood Loss 50 ml # Voids 1 # Bowel Movements 0 Result Diagram: 01/30/18 0155 01/30/18 015 Objective Remarks Dressing is dry. Sensation normal. Wiggles her toes. The refill is satisfactory Assessment & Plan Assessment and Plan Trimalleolar fracture dislocation, left ankle. Diabetes mellitus. SURGERY: Open treatment internal fixation left ankle without posterior malleolar fixation: POD #1 PLAN: Nonweightbearing left leg and No dressing change. Aspirin 81 mg by mouth twice a day for 30 days. [place] as needed for pain. Ambulation with walker. Orthopedically stable for discharge. Follow-up in 3 weeks. On return x-ray and probable placement in short leg cast Rey Clemens MD Jan 31, 2018 06:53
[2018-01-31 07:52] VITALS: BP 160/78; PULSE 99; RESP 18; TEMP 96.8; O2SAT 95
[2018-01-31 08:00] LABS: AUTOMATED NEUTROPHIL # 5.9 TH/MM3 (1.8-7.7); BASOPHIL # 0.1 TH/MM3 (0-0.2); BASOPHIL % 0.9 % (0.0-2.0); EOSINOPHIL # 0.1 TH/MM3 (0-0.4); EOSINOPHIL % 1.4 % (0.0-4.0); HEMATOCRIT 36.8 % (35.0-46.0); HEMOGLOBIN 12.5 GM/DL (11.6-15.3); LYMPH % 22.9 % (9.0-44.0); MEAN CELL VOLUME 87.9 FL (80.0-100.0); MEAN CORPUSCULAR HEMOGLOBIN 29.9 PG (27.0-34.0); MEAN CORPUSCULAR HGB CONC 34.1 % (32.0-36.0); MEAN PLATELET VOLUME 8.8 FL (7.0-11.0); MONO % 8.3 % (0.0-8.0); MONOCYTE # 0.7 TH/MM3 (0-0.9); NEUT % 66.5 % (16.0-70.0); PLATELET COUNT 209 TH/MM3 (150-450); RED BLOOD COUNT 4.18 MIL/MM3 (4.00-5.30); RED CELL DISTRIBUTION WIDTH 13.6 % (11.6-17.2); WHITE BLOOD COUNT 8.8 TH/MM3 (4.0-11.0)
[2018-01-31] MEDS: INSULIN ASPART SUPPLEMENTAL SCALE SQ SCH ×3 (08:00→17:00)
[2018-01-31] MEDS: SODIUM CHLORIDE 0.9% FLUSH 10 ML FLUSH IV FLUSH SCH (08:02)
[2018-01-31] MEDS: DOCUSATE SODIUM 50 MG/SENNA 8.6 MG TAB PO SCH ×2 (08:03→08:29)
[2018-01-31] MEDS: CALCIUM/VITAMIN D 250 MG/125 U TAB PO SCH ×3 (08:03→16:54)
[2018-01-31] MEDS: LISINOPRIL 20 MG TAB PO SCH (08:03)
[2018-01-31] MEDS: CARVEDILOL 12.5 MG TAB PO SCH (08:05)
[2018-01-31] MEDS: ASPIRIN EC 81 MG TABEC PO SCH (08:05)
[2018-01-31 08:30] LABS: ALBUMIN 2.7 GM/DL (3.4-5.0); ALKALINE PHOSPHATASE 102 U/L (45-117); ALT (GPT) 50 U/L (10-53); AST (GOT) 31 U/L (15-37); BICARBONATE 26.3 MEQ/L (21.0-32.0); BLOOD UREA NITROGEN 14 MG/DL (7-18); CALCIUM 8.4 MG/DL (8.5-10.1); CHLORIDE 104 MEQ/L (98-107); CREATININE 0.82 MG/DL (0.50-1.00); GLOMERULAR FILTRATION RATE 72 ML/MIN (>89); GLUCOSE,RANDOM 242 MG/DL (74-106); SODIUM (NA) 138 MEQ/L (136-145); TOTAL BILIRUBIN ADULT 0.6 MG/DL (0.2-1.0); TOTAL PROTEIN 6.3 GM/DL (6.4-8.2)
[2018-01-31] MEDS ORDERED: MULTIVITAMINS/MINERALS THERAPEUTIC TAB PO SCH (09:00)
[2018-01-31] MEDS: LACTATED RINGER'S 1000 ML INJ 1,000 ML IV SCH (09:17)
[2018-01-31 09:50] VITALS: O2SAT 95
[2018-01-31] MEDS ORDERED: GETGO ROLLING W1 MI1 (10:17)
[2018-01-31] MEDS ORDERED: CALC250 PO (10:43)
[2018-01-31 12:28] VITALS: BP 143/77; PULSE 95; RESP 17; TEMP 96.8; O2SAT 96
--- NOTE | 2018-01-31 14:20 | HHI.FPPN ---
Addendum to progress note ADDENDUM Reason for addendum: Additonal documentation Additional information Please see resident H and P for additional and complete history documentation. Patient is 57 year old with h/o ankle dislocation and fracture that is post- surgical repair. She is doing well, pain is controlled. No additional complaints. Denies fevers/chills/SOB. On exam she is not in distress, alert and oriented Cards -- rrr, no murmurs lungs -- cta bilaterally abd -- s, NT, ND, good bowel sounds ext -- surgical dressing intact, left leg with no edema She has been cleared by ortho for discharge. Waiting for PT assessment to ensure patient is capable of moving with walker. Her medical issues are stable and she has had no post-op or surgical complications. She will need pain control for a few days post op and is to be non-weight bearing until released by ortho. She will need work excuse and restrictions until cleared by ortho in 2 weeks. Anticipate discharge today after PT assessment. Patient seen and dw the resident team -- Dr. Sher, Dr. Woods, Dr. Ismael Perdomo,Glenna Felix MD Jan 31, 2018 14:20
--- NOTE | 2018-01-31 15:14 | HHI.DCPOC ---
Discharge Care Plan Diagnosis: (1) Trimalleolar fracture of ankle, closed (2) Hypertension (3) Diabetes mellitus type 2, controlled Goals to Promote Your Health * To prevent worsening of your condition and complications * To maintain your health at the optimal level Directions to Meet Your Goals Take your medications as prescribed Follow your dietary instruction Follow activity as directed Keep your appointments as scheduled Take your immunizations and boosters as scheduled If your symptoms worsen call your PCP, if no PCP go to Urgent Care Center or Emergency Room Smoking is Dangerous to Your Health. Avoid second hand smoke Call the 24-hour hour crisis hotline for domestic abuse at Araceli Nathan MD, R3 Jan 31, 2018 15:14
[2018-01-31 16:35] VITALS: BP 166/84; PULSE 95; RESP 18; TEMP 96.9; O2SAT 98
== END 2018-01-31 19:33 | disposition home or self-care (01) | DRG 494 ==
LOC: NEPC 22:49 → NEDA 01-30 02:38 → NEPFCDU 01-30 04:17 → N06B 01-30 08:05 → NEPFCDU 01-30 08:12 → UNDODISIN 01-30 11:27 → N06B 01-30 13:15 → N06A 01-30 17:25
PROVIDERS: ADMIT Family Medicine; ATTEND Family Medicine
PROC: 0QSH04Z Reposition Left Tibia with Internal Fixation Device, Open Approach (ICD-10-PCS; 2018-01-30)
PROC: 0SSG04Z Reposition Left Ankle Joint with Internal Fixation Device, Open Approach (ICD-10-PCS; 2018-01-30)
PROC: 0SSGXZZ Reposition Left Ankle Joint, External Approach (ICD-10-PCS; 2018-01-30)
PROC: 0QSK04Z Reposition Left Fibula with Internal Fixation Device, Open Approach (ICD-10-PCS; principal; 2018-01-30 11:29)
DX: S82.852A Displaced trimalleolar fracture of left lower leg, initial encounter for closed fracture (principal); S09.90XA Unspecified injury of head, initial encounter; S93.05XA Dislocation of left ankle joint, initial encounter; S93.439A Sprain of tibiofibular ligament of unspecified ankle, initial encounter; I10 Essential (primary) hypertension; E11.9 Type 2 diabetes mellitus without complications; M85.80 Other specified disorders of bone density and structure, unspecified site; M54.9 Dorsalgia, unspecified; E78.5 Hyperlipidemia, unspecified; W17.89XA Other fall from one level to another, initial encounter; Z79.899 Other long term (current) drug therapy; Y92.018 Other place in single-family (private) house as the place of occurrence of the external cause
CPT/HCPCS: 70450; 71045; 72125; 73600; 73610; 76000; 80053; 82948; 83735; 85007; 85025; 85027; 85610; 85730; 94150; J0690; J1580; J2250; J2270; J2370; J2405; J3010; J7030; J7040; J7120

== ENCOUNTER → 2018-04-20 | Outpatient (CLI) | payer BC ==
[~2018-04-20] MED LIST changes: -ASPI81TA81 PO; +CALC250 PO; +CINN500C14; +ECASA81 PO; +GETGO ROLLING W1 MI1; +HYDR-3580 PO; -MULT-120 PO; +MULT-65 PO; +TURM500C7; -[UNRECOGNIZED DRUG - SUPPLY]; -glucometer
--- NOTE | 2018-04-21 15:25 | EKG ---
Date Performed: 04/20/2018 Time Performed: 14:49:37 PTAGE: 58 years EKG: Sinus rhythm NORMAL ECG Since the PREVIOUS TRACING , no significant change noted PREVIOUS TRACIN08/10/2012 06.47 DOCTOR: Jessica Tucker Interpretating Date/Time 04/21/2018 15:24:36
== END ==
LOC: HCAV 14:37
PROVIDERS: ATTEND Orthopaedic Surgery Orthopaedic Surgery of the Spine
DX: Z01.810 Encounter for preprocedural cardiovascular examination (principal)
CPT/HCPCS: 93005